=== PATIENT | female | born 1950 | race Caucasian/White ===

== ENCOUNTER 2018-09-06 06:20 | Observation (INO) ==
--- NOTE | 2018-09-06 06:35 | Emergency Department Note ---
Disposition Clinical Impression: Hypoxia Bilateral pneumonia Qualifiers: Pneumonia type: due to unspecified organism Lung location: upper lobe of lung Qualified Code(s): J18.1 - Lobar pneumonia, unspecified organism Disposition: Admitted As Inpatient Condition: Fair Time of Disposition: 09:21 SOB HPI - General Chief Complaint: ED Shortness of Breath/Dyspnea Stated Complaint: shortness of breath Time Seen by Provider: 09/06/18 06:30 Source: patient Mode of arrival: private vehicle Limitations: no limitations Nursing Notes Reviewed: Yes Vital Signs Reviewed: Yes - History of Present Illness Patient reports she has had upper respiratory congestion and a cough over the course of about 8 days. She was seen at urgent care this past Tuesday and was diagnosed as having a bronchitis and was prescribed prednisone, Tessalon Perles and azithromycin. She states she is not getting any better, has persistent cough and significant dyspnea on exertion. She also has resting dyspnea. She relates her cough is largely nonproductive and she will brings a very rare clear phlegm. She does have a little chills and occasional feels hot but is not definite fever. She denies chest pain beyond soreness with coughing or abdominal pain except from muscle soreness from coughing. She is not having palpitations. She has generalized weakness and malaise but no dizziness or diaphoresis. She denies any lower extremity swelling, immobilization or injury. She denies any known ill exposures. She has not had nausea or vomiting but she does report a couple episodes of diarrhea since starting the azithromycin. She denies any history of preceding respiratory trouble such as asthma or COPD. She is not on home oxygen and her other respiratory treatments. Due to the progressive dyspnea she is presented for evaluation. She is noted to be 86% on room air on arrival and somewhat hoarse. Pt Subjective Complaint: shortness of breath Onset (ago): day(s) (9) Context: recent illness Severity: moderate, severe Consistency/Duration: gradually worsening Improves with: rest Worsens with: exertion, coughing Associated symptoms: Reports: cough, wheezing, sputum production. Denies: chest pain, pain with inspiration, fever, orthopnea, lower extremity pain, polyuria, polydipsia, parasthesias, palpitations, hemoptysis, diaphoresis, nausea/vomiting, syncope, abdominal pain, rash Cough present: Yes Cough Description: Voluntary, Hacking, Wheezy Cough Frequency: Intermittent Sputum production: Yes Sputum Amount: Scant Sputum Color: White - Related Data Home oxygen amount: none Home Medications Medication Instructions Recorded Confirmed metFORMIN [Glucophage] 1,000 mg PO BIDWM 12/06/14 09/06/18 Allergies Allergy/AdvReac Type Severity Reaction Status Date / Time cephalexin [From Keflex] Allergy Hives Verified 06/13/18 10:55 All systems ED: reviewed and negative except as stated. Past Medical History - Past Medical History Attestation: Yes The following information was validated with the patient. Source: patient, old records reviewed, obtained from family, nursing notes reviewed Medical history: Reports: diabetes. Denies: asthma, COPD, coronary artery disease, DVT, hyperlipidemia, hypertension, pulmonary embolus, renal disease - Social History Smoking Status: Current every day smoker Smokeless Tobacco Status: No Alcohol use: Reports: none Drug use: Reports: none Physical Exam - General Limitations: no limitations General appearance: alert, in no apparent distress (Now on supplemental oxygen) - Head Head exam: atraumatic, normocephalic, normal inspection - Eye Eye exam: Present: normal appearance, PERRL, EOMI. Absent: scleral icterus, conjunctival injection - ENT ENT exam: normal exam, normal oropharynx, mucous membranes moist - Neck Neck exam: Present: normal inspection, full ROM, trachea midline - Chest Chest inspection: Present: normal inspection, symmetric chest wall rise. Absent: tenderness - Respiratory Respiratory exam: Present: respiratory distress (Prolonged respiratory phase and coughing), wheezes (Scant), prolonged expiratory phase, other (Mild decreased breath sounds in the left base.) - Cardiovascular Cardiovascular exam: Present: regular rate, normal rhythm, tachycardia, normal heart sounds. Absent: systolic murmur, JVD - Abdominal Exam Abdominal exam: Present: soft, Non-Tender, normal bowel sounds. Absent: tenderness, distention, guarding, rebound, rigidity - Extremities Exam Extremities exam: Present: normal inspection, full ROM, normal capillary refill. Absent: tenderness, pedal edema, calf tenderness - Expanded Lower Extremity Exam Neurovascular/Tendon exam: Present: normal capillary refill. Absent: motor deficit, sensory deficit, tendon deficit Gait: observed and normal - Back Exam Back exam: Present: normal inspection, full ROM. Absent: tenderness - Neurological Exam Neurological exam: Present: alert, oriented X3 - Psychiatric Psychiatric exam: Present: normal affect, normal mood. Absent: agitated, anxious - Skin Skin exam: Present: warm, dry, intact, normal color. Absent: diaphoresis, pallor Course Course Narrative: 0640: Patient was advised that she has failed adequate outpatient treatment and will likely need inpatient care. She is saturating poorly on room air or on a couple liters of oxygen. She is 90-93% on supplemental oxygen. She does have a occasional harsh cough that sounds tight. She is been written for IV fluids , EKGand laboratory testing. She has failed a course of azithromycin and has allergy to cephalexin prompting a dose of Levaquin to be ordered. She will receive an IV steroid and a DuoNeb aerosol. She understands that if her clinical course does not significantly improved I would recommend inpatient care. 0730: Chest x-ray is questionable for a hilar mass. There is no definite infiltrate to explain the patient's dyspnea and hypoxia. A CT chest with contrast has been ordered to better define the mass and rule out pulmonary embolism. 0800: The patient has just gone to CT for imaging. Care has been turned over to Dr. Reyes pending result of this for likely admission. - Reevaluation(s) Reevaluation #1: Case was turned over to me at change of shift. The PE study came back with no evidence of pulmonary embolism but groundglass appearance in both upper lobes consistent with pneumonia. So there is a patient who has been on antibiotics but presents to the emergency department with hypoxia who now has a confirm pneumonia on CT scan. This represents a failure of outpatient treatment. She needs to be admitted to the hospital. She is already received the appropriate medications here. I went and spoke with Dr. Mcdaniel, the hospitalist, and discussed the case with him. He accepted the patient for admission to the hospital. Orders were placed. At this time the patient is stable. Breathing comfortably on 2 L of oxygen with an O2 sat of 92%. Time: 09:20 Vital Signs Temperature 99.3 F 09/06/18 06:21 Pulse Rate 113 09/06/18 06:21 Respiratory Rate 18 09/06/18 06:21 Blood Pressure 152/78 09/06/18 06:21 O2 Sat by Pulse Oximetry 86 09/06/18 06:21 Temperature 99.3 F 09/06/18 06:21 Pulse Rate 99 09/06/18 07:39 Respiratory Rate 18 09/06/18 07:39 Blood Pressure 142/75 09/06/18 07:39 O2 Sat by Pulse Oximetry 94 09/06/18 07:39 Oxygen Delivery Oxygen Delivery Nasal Cannula Shortness of Breath/Dyspnea - Differential Diagnosis Likely: pneumonia (Bronchitis with bronchospasm). Unlikely: congestive heart failure, asthma with exacerbation - Medical Records Medical records reviewed: Yes I reviewed the patient's medical records. - Lab Data Lab results reviewed: Yes I reviewed the patient's lab results. Result diagrams: 09/06/18 06:53 09/06/18 06:53 Lab Results 09/06/18 09/06/18 09/06/18 Range/Units 06:53 06:53 06:53 WBC 8.6 (4.3-11.1) K/mcL RBC 4.57 (3.82-4.97) M/mcL Hgb 14.3 (11.5-15.4) g/dL Hct 41.5 (35.3-44.9) % MCV 90.8 (83.0-100.0) fL MCH 31.3 (28.0-33.3) pg MCHC 34.5 (31.6-35.5) g/dL RDW 12.5 (11.5-14.5) % Plt Count 199 (140-400) K/mcL MPV 9.4 (9.4-12.4) fL Immature Gran % 0.5 (0-4) % Seg Neutrophils % 70.5 % Lymphocytes % 20.5 % Monocytes % 8.3 % Eosinophils % 0.0 % Basophils % 0.2 % Neutrophils # 6.1 (1.6-8.9) K/mcL Lymphocytes # 1.8 (0.6-4.6) K/mcL Monocytes # 0.7 (0.0-1.3) K/mcL Eosinophils # 0.0 (0.0-0.6) K/mcL Basophils # 0.0 (0.0-0.2) K/mcL Sodium 134 L (136-145) mEq/L Potassium 3.8 (3.5-5.1) mEq/L Chloride 98 (98-107) mEq/L Carbon Dioxide 29 (23-29) mEq/L BUN 11 (8-23) mg/dL Creatinine 0.68 (0.60-1.20) mg/dL Est GFR ( Amer) > 60 (> 60) Est GFR (Non-Af Amer) > 60 (> 60) BUN/Creatinine Ratio 16 (6-26) Glucose 158 H (70-105) mg/dL Calculated Osmolality 281 (280-300) Lactic Acid 0.9 (0.5-2.2) mmol/L Calcium 8.6 (8.6-10.3) mg/dL Troponin I < 0.03 (< 0.04) ng/mL B-Natriuretic Peptide (Less than 100) pg/mL 09/06/18 Range/Units 06:53 WBC (4.3-11.1) K/mcL RBC (3.82-4.97) M/mcL Hgb (11.5-15.4) g/dL Hct (35.3-44.9) % MCV (83.0-100.0) fL MCH (28.0-33.3) pg MCHC (31.6-35.5) g/dL RDW (11.5-14.5) % Plt Count (140-400) K/mcL MPV (9.4-12.4) fL Immature Gran % (0-4) % Seg Neutrophils % % Lymphocytes % % Monocytes % % Eosinophils % % Basophils % % Neutrophils # (1.6-8.9) K/mcL Lymphocytes # (0.6-4.6) K/mcL Monocytes # (0.0-1.3) K/mcL Eosinophils # (0.0-0.6) K/mcL Basophils # (0.0-0.2) K/mcL Sodium (136-145) mEq/L Potassium (3.5-5.1) mEq/L Chloride (98-107) mEq/L Carbon Dioxide (23-29) mEq/L BUN (8-23) mg/dL Creatinine (0.60-1.20) mg/dL Est GFR ( Amer) (> 60) Est GFR (Non-Af Amer) (> 60) BUN/Creatinine Ratio (6-26) Glucose (70-105) mg/dL Calculated Osmolality (280-300) Lactic Acid (0.5-2.2) mmol/L Calcium (8.6-10.3) mg/dL Troponin I (< 0.04) ng/mL B-Natriuretic Peptide 61 (Less than 100) pg/mL - Radiology Data Radiology results reviewed: Yes I reviewed the patient's radiology results. Single view chest x-ray is performed. This does not demonstrate evidence for infiltrate, effusion, pneumothorax, foreign body or heart failure. The cardiac silhouette is normal. I do not see abnormality to the osseous structures of the chest. This is on my interpretation. Impressions Chest X-Ray 09/06/18 06:36 IMPRESSION: 1. Questionable left suprahilar nodule. Recommend CT of the chest for further evaluation. 2. Mild enlargement of the cardiac silhouette. D/ / Deejay Monk MD / Deejay Monk MD Interpreting Provider: Deejay Monk MD 0815: I have reviewed the CT of the chest prior to radiology reading. This appears to show a mild lingular infiltrate as well as a patchy small infiltrate in the right lower lung posteriorly. Patient does have one granuloma the lateral aspect of the right lung. Do not see evidence for edema, significant mass, pneumothorax or pericardial effusion. No other acute abnormalities are seen. This is on my interpretation. - EKG Data EKG attestation: Yes I reviewed and interpreted this EKG. EKG shows normal: Reports: sinus rhythm, axis, intervals, QRS complexes, ST-T waves Rate: Reports: tachycardia (103) [place]/QRS: Reports: LAHB/LAFB Interpretation: Reports: no acute changes S.B.ATerrence - Kong.AshleyATerrence Situation: Demographics, MOA Background: Presenting Complaint, Relevant PMH, Meds, & Allergies Assessment: Vital Signs, Course and respsone to treatment, Patient/Family Expe ctation, Pertinant Lab Results, Outstanding Labs Recommendation: Recommendation based on pending studies, treatments, or consults S.B.ATerrence Report Given to: Dr. Eric Worthy Repor Time: 08:00
[2018-09-06] MEDS ORDERED: methylPREDNISolone 125 MG/2 ML VIAL IVP ONE (06:36)
[2018-09-06] MEDS ORDERED: Ipratropium/Albuterol Neb 3 ML IH ONE (06:36)
[2018-09-06] MEDS ORDERED: 0.9 % Sodium Chloride 1,000 ML IVC ONE (06:36)
[2018-09-06] MEDS ORDERED: levoFLOXacin 750 MG/150 ML 750 MG/150 ML BAG IVPB ONE (06:38)
[2018-09-06 07:20] LABS: Basophils % 0.2 %; Hematocrit 41.5 % (35.3-44.9); Hemoglobin 14.3 g/dL (11.5-15.4); Immature Granulocytes % 0.5 % (0-4); Lymphocytes # 1.8 K/mcL (0.6-4.6); Lymphocytes % 20.5 %; Mean Corpuscular HGB Conc 34.5 g/dL (31.6-35.5); Mean Corpuscular Hemoglobin 31.3 pg (28.0-33.3); Mean Corpuscular Volume 90.8 fL (83.0-100.0); Mean Platelet Volume 9.4 fL (9.4-12.4); Monocytes # 0.7 K/mcL (0.0-1.3); Monocytes % 8.3 %; Neutrophils # 6.1 K/mcL (1.6-8.9); Platelet Count 199 K/mcL (140-400); Red Blood Count 4.57 M/mcL (3.82-4.97); Red Cell Distribution Width 12.5 % (11.5-14.5); Segmented Neutrophils % 70.5 %; White Blood Count 8.6 K/mcL (4.3-11.1)
[2018-09-06 07:30] LABS: BUN/Creatinine Ratio 16 (6-26); Blood Urea Nitrogen 11 mg/dL (8-23); Calcium 8.6 mg/dL (8.6-10.3); Carbon Dioxide 29 mEq/L (23-29); Chloride 98 mEq/L (98-107); Glucose 158 mg/dL (70-105); Osmolality,Calculated 281 (280-300); Potassium 3.8 mEq/L (3.5-5.1); Sodium 134 mEq/L (136-145); Troponin I < 0.03 ng/mL (< 0.04); eGFR For African Americans > 60 (> 60); eGFR For Non-African Americans > 60 (> 60)
[2018-09-06] MEDS ORDERED: Isovue-370 500 ML BOTTLE IVP ONE (07:30)
[2018-09-06] MEDS ORDERED: 0.9 % Sodium Chloride 1,000 ML IVC SCH ×4 (07:45→15:50)
[2018-09-06] MEDS ORDERED: Naloxone 0.4 MG/ML INJ IVP PRN (08:49)
[2018-09-06] MEDS ORDERED: MethylPREDNISolone 40 MG/ML VIAL IVP ONE (08:51)
--- NOTE | 2018-09-06 09:43 | Electrocardiograph Report ---
[place] [id number] Test Date: 2018-09-06 Pat Name: Lindsey Wolff Department: EDP-12 Room: [facility] Gender: F Lard Maker: : 1950 Requested By: Raymon Smith Order Number: [id number] Reading MD: Mukesh Vigil Measurements Intervals [place] Rate: 103 P: 64 WI: 161 QRS: -54 QRSD: 97 T: 74 QT: 333 QTc: 436 Interpretive Statements Sinus tachycardia RSR' in V1 or V2, right VCD or RVH Electronically Signed On 09-06-2018 9:41:30 EDT by Mukesh Vigil
[2018-09-06] MEDS: levoFLOXacin 750 MG/150 ML 750 MG/150 ML BAG IVPB SCH (10:26)
[2018-09-06] MEDS ORDERED: Ibuprofen 600 MG TABLET PO PRN (10:47)
[2018-09-06] MEDS: Ipratropium/Albuterol Neb 3 ML IH SCH ×2 (11:06→15:36)
--- NOTE | 2018-09-06 15:40 | Internal Med History&Physical ---
Date of Encounter: 09/06/18 Time of Encounter: 15:10 Assessment and Plan (1) Bilateral pneumonia Current visit: Yes Status: Acute She has been started on IV Levaquin. Lactobacillus will be added. Pro- calcitonin level will be checked. Qualifiers: Pneumonia type: due to unspecified organism Lung location: upper lobe of lung Qualified Code(s): J18.1 - Lobar pneumonia, unspecified organism (2) Hypoxia Current visit: Yes Status: Acute Room air oximetry will be checked on 6 minute walk prior to discharge. Internal Medicine - H&P: HPI Chief complaint: Dyspnea and cough Admitted From: Emergency Dept Plans for Post Hospital Care: Home History of present illness: Ms. Wolff is a 67 year old female who came to emergency room stating she had onset of fevers chills dyspnea and nonproductive cough the afternoon of September 01. The following day she went to a local urgent care and was diagnosed with bronchitis. She reports receiving a Z-Roge, Tessalon perles, and steroids. She did not feel improved after taking therapy for several days so came to emergency room today. She was evaluated with chest CTA showing multiple ill-defined groundglass nodules up to 10 mm in the left upper lobe and right lower lobe most concerning for an infectious process. There was mild left hilar lymph adenopathy. There was a 16 mm right thyroid lobe nodule seen. Room air oximetry showed 86% saturation. She was admitted to [facility] floor for ongoing care needs. She states she feels improved at the present time. Respiratory history is significant for having smoked since age 21 up to one pack per day. She has not had PFTs and does not use home oxygen. She denies testing for BHAVEHS. Past Med Surg Social Fam HX - Past Medical History Medical history: diabetes Psychiatric history: anxiety - Past Surgical History Surgical History: non-contributory Additional surgical history: Bilateral ear surgery - Social History Smoking Status: Current every day smoker Packs per day: 1 Smokeless Tobacco Status: No Alcohol use: none Drug use: none Internal Medicine - H&P: Meds metFORMIN [Glucophage] 1,000 mg PO BIDWM 12/06/14 [History] Albuterol Sulfate [Proair Hfa] 1 puff IH 09/06/18 [History] Cholecalciferol (Vitamin D3) [Vitamin D3] 10,000 unit PO TH 09/06/18 [History] Losartan Potassium 12.5 mg PO DAILY 09/06/18 [History] Allergy/AdvReac Type Severity Reaction Status Date / Time cephalexin [From Keflex] Allergy Hives Verified 06/13/18 10:55 bupropion [From Wellbutrin] AdvReac Anxiety Verified 09/06/18 10:18 Varenicline [From Chantix] AdvReac Anxiety Verified 09/06/18 10:18 All Systems PM: A 10-system review of systems was performed and is negative for pertinent findings except as documented above in the HPI. Review of systems: Gen.: She states her weight has been stable for several months Cardiovascular: She denies hypertension IA heart failure angina DVT or pulmonary embolus. She reports a negative EST done over 10 years ago. Respiratory: As per history of present illness GI: She denies disorders of her liver gallbladder or exocrine pancreas : She denies hematuria dysuria or kidney stones Neurologic: She denies large distribution strokes or seizures. Endocrine: She was diagnosed with DM 2 approximately 2010. She denies known thyroid disease. She states she takes a statin drug for CV risk reduction Hematology/oncology: She denies blood disorders cancers or anemia Psychiatric: She has anxiety and reports using hydroxyzine as needed. She denies depression or other mental health diagnoses. [place] skeletal: She denies arthritis gout or other bone joint or muscle disorders. - Constitutional Vitals: Temp Pulse Resp BP Pulse Ox 99.1 F 96 16 129/75 96 09/06/18 09:08 09/06/18 09:08 09/06/18 11:06 09/06/18 09:08 09/06/18 11:06 Exam: Gen.: She is a well-developed well-nourished female sitting on the side of bed who appears in no acute distress HEENT: Head is atraumatic and normocephalic. Eyes: EOMI. There is no scleral icterus. Mouth: Mucosa is moist. Neck: Supple and nontender. There is no thyromegaly or adenopathy noted. Heart: Regular without murmurs gallops or ectopics Lungs: No wheezes or crackles or egophony are heard Abdomen: Soft and nontender. No masses or guarding are noted. Extremities: There is no cyanosis edema or clubbing noted. Dorsalis pedis and posterior tibial pulses are 1-2 over 2 bilaterally. Neurologic: Mental status: She is talkative and a good historian. Cranial nerves: Smile is symmetric. Forehead wrinkles bilaterally. Tongue protrudes midline. EOMI. Motor: There is no pronator drift. Cerebellar: Finger to nose is intact bilaterally. Skin: Warm and dry Internal Med - H&P Results - Labs CBC & Chem 7: 09/06/18 06:53 09/06/18 06:53 Labs: Short CBC 09/06/18 Range/Units 06:53 WBC 8.6 (4.3-11.1) K/mcL Hgb 14.3 (11.5-15.4) g/dL Hct 41.5 (35.3-44.9) % Plt Count 199 (140-400) K/mcL Neutrophils # 6.1 (1.6-8.9) K/mcL BMP 09/06/18 06:53 Sodium 134 L Potassium 3.8 Chloride 98 Carbon Dioxide 29 BUN 11 Creatinine 0.68 Glucose 158 H Calcium 8.6 Cardiac Enzymes 09/06/18 Range/Units 06:53 Troponin I < 0.03 (< 0.04) ng/mL - Impressions ITS Impressions Chest X-Ray 09/06/18 06:36 IMPRESSION: 1. Questionable left suprahilar nodule. Recommend CT of the chest for further evaluation. 2. Mild enlargement of the cardiac silhouette. D/ / Deejay Monk MD / Deejay Monk MD Interpreting Provider: Deejay Monk MD Chest CTA 09/06/18 07:30 IMPRESSION: 1. No evidence of pulmonary embolism. 2. Multiple ill-defined ground-glass nodules, which measure up to 10 mm in the left upper lobe and right lower lobe. They are most concerning for an infectious process, but follow-up per guidelines below is recommended. 3. Mild left hilar lymphadenopathy, which is nonspecific and may be reactive. 4. Possible 16 mm right thyroid lobe nodule. Further evaluation with thyroid ultrasound on a nonemergent basis is recommended. RECOMMENDATIONS: Fleischner Society guidelines for follow-up and management of incidentally detected subsolid pulmonary nodules: Multiple subsolid nodules < 6 mm - CT at 3-6 months. If stable, consider CT at 2 and 4 years. > than or equal to 6 mm - CT at 3-6 months. Subsequent management based on the most suspicious nodule(s). - Low risk patients include individuals with minimal or absent history of smoking and other known risk factors. - High risk patients include individuals with a history or smoking or known risk factors. Radiology 2017 http://pubs.rsna.org/doi/full/10.1148/[email or web address] D/ / 09/06/2018 08:25:25 Jadiel Feliciano MD / carmen Interpreting Provider: Jadiel Feliciano MD
[2018-09-06] MEDS ORDERED: Albuterol 2.5 MG/3 ML NEBULIZER IH PRN (15:50)
[2018-09-06] MEDS ORDERED: methylPREDNISolone 125 MG/2 ML VIAL IVP SCH (16:00)
[2018-09-06] MEDS ORDERED: Dextrose Gel 15 GM/37.5 ML TUBE PO PRN ×2 (16:50)
[2018-09-06] MEDS ORDERED: *HR* Dextrose 50 % in Water (Vial) 50 ML VIAL IVP PRN (16:50)
[2018-09-06] MEDS ORDERED: D5% in Water 1,000 ML IVC PRN (16:50)
[2018-09-06] MEDS ORDERED: *HR* Metformin 500 MG TABLET PO SCH (17:00)
[2018-09-06] MEDS: Insulin LISPRO 300 UNITS/3 ML VIAL SQ SCH (17:50)
[2018-09-06] MEDS ORDERED: Insulin LISPRO 300 UNITS/3 ML VIAL SQ SCH (21:00)
[2018-09-06] MEDS: Lactobacillus 1 EACH CAP.SPRINK PO SCH (21:44)
[2018-09-07 05:15] LABS: Basophils % 0.1 %; Hematocrit 36.7 % (35.3-44.9); Hemoglobin 12.5 g/dL (11.5-15.4); Immature Granulocytes % 0.3 % (0-4); Lymphocytes # 3.1 K/mcL (0.6-4.6); Lymphocytes % 44.8 %; Mean Corpuscular HGB Conc 34.1 g/dL (31.6-35.5); Mean Corpuscular Hemoglobin 31.2 pg (28.0-33.3); Mean Corpuscular Volume 91.5 fL (83.0-100.0); Mean Platelet Volume 9.2 fL (9.4-12.4); Monocytes # 0.5 K/mcL (0.0-1.3); Monocytes % 7.8 %; Neutrophils # 3.2 K/mcL (1.6-8.9); Platelet Count 193 K/mcL (140-400); Red Blood Count 4.01 M/mcL (3.82-4.97); Red Cell Distribution Width 12.6 % (11.5-14.5); White Blood Count 6.9 K/mcL (4.3-11.1)
[2018-09-07 05:34] LABS: Alanine Aminotransferase 38 Units/L (7-52); Albumin 3.5 g/dL (3.5-5.7); Albumin/Globulin Ratio 1.3 (1.1-2.2); Alkaline Phosphatase 70 Units/L (34-104); Aspartate Amino Transferase 36 Units/L (13-39); BUN/Creatinine Ratio 19 (6-26); Bilirubin,Total 0.2 mg/dL (0.3-1.0); Blood Urea Nitrogen 11 mg/dL (8-23); Calcium 8.2 mg/dL (8.6-10.3); Carbon Dioxide 29 mEq/L (23-29); Chloride 103 mEq/L (98-107); Globulin 2.7 g/dL (2.4-3.5); Glucose 115 mg/dL (70-105); Osmolality,Calculated 282 (280-300); Potassium 3.9 mEq/L (3.5-5.1); Sodium 136 mEq/L (136-145); Total Protein 6.2 g/dL (6.4-8.9); eGFR For African Americans > 60 (> 60); eGFR For Non-African Americans > 60 (> 60)
[2018-09-07] MEDS: Lactobacillus 1 EACH CAP.SPRINK PO SCH (08:28)
[2018-09-07] MEDS: levoFLOXacin 750 MG/150 ML 750 MG/150 ML BAG IVPB SCH (08:28)
[2018-09-07] MEDS: Insulin LISPRO 300 UNITS/3 ML VIAL SQ SCH (08:29)
[2018-09-07 10:53] VITALS: BP 126/71
--- NOTE | 2018-09-07 11:26 | Discharge Summary ---
Orders not resulted at time of discharge: Pending orders 09/06/18 06:53 Culture,Blood [] Stat Date of Encounter: 09/07/18 Time of Encounter: 11:20 - Discharge Diagnosis (1) Bilateral pneumonia Priority: Primary Status: Acute Qualifiers: Pneumonia type: due to unspecified organism Lung location: upper lobe of lung Qualified Code(s): J18.1 - Lobar pneumonia, unspecified organism (2) Hypoxia Priority: Secondary Status: Acute Hospital course: Ms. Wolff is a 67 year old female who came to emergency room stating she had onset of fevers chills dyspnea and nonproductive cough the afternoon of September 01. The following day she went to a local urgent care and was diagnosed with bronchitis. She reports receiving a Z-Roge, Tessalon perles, and steroids. She did not feel improved after taking therapy for several days so came to emergency room today. She was evaluated with chest CTA showing multiple ill-defined groundglass nodules up to 10 mm in the left upper lobe and right lower lobe most concerning for an infectious process. There was mild left hilar lymphadenopathy. There was a 16 mm right thyroid lobe nodule seen. Room air oximetry showed 86% saturation. She was admitted to [facility] for ongoing care needs. Initial orders were written by the emergency room physician. I saw her on September 06 performed a history and physical. She was started empirically on IV Levaquin in emergency room. Procalcitonin level returned within normal range so antibiotics will not be continued at discharge. WBC remained normal without left shift on differential in follow-up labs September 07. When I saw her on September 07 she felt improved and stable for discharge home. Room air oximetry will be checked on 6 minute walk prior to discharge. I encouraged her strongly to become a nonsmoker. She will follow with her PCP Tootie Rodríguez CNP within 1 week. Her PCP can order follow-up chest CT in a few weeks to ensure resolution of pulmonary nodules. - Time Spent with Patient Total time spent providing and/or coordinating discharge services: - Discharge Medications Prescriptions: Continued metFORMIN [Glucophage] 1,000 mg PO BIDWM Losartan Potassium 12.5 mg PO DAILY Cholecalciferol (Vitamin D3) [Vitamin D3] 10,000 unit PO TH Albuterol Sulfate [Proair Hfa] 1 puff IH Home Medications: metFORMIN [Glucophage] 1,000 mg PO BIDWM 12/06/14 [History] Albuterol Sulfate [Proair Hfa] 1 puff IH 09/06/18 [History] Cholecalciferol (Vitamin D3) [Vitamin D3] 10,000 unit PO TH 09/06/18 [History] Losartan Potassium 12.5 mg PO DAILY 09/06/18 [History] Allergies/Adverse Reactions: Allergy/AdvReac Type Severity Reaction Status Date / Time cephalexin [From Keflex] Allergy Hives Verified 06/13/18 10:55 bupropion [From Wellbutrin] AdvReac Anxiety Verified 09/06/18 10:18 Varenicline [From Chantix] AdvReac Anxiety Verified 09/06/18 10:18 Date of admission: 09/06/18 08:59 Primary care physician: Tootie Rodríguez - Constitutional Vitals: Temp Pulse Resp BP Pulse Ox 98.3 F 79 16 126/71 94 09/07/18 10:53 09/07/18 10:53 09/07/18 10:53 09/07/18 10:53 09/07/18 10:53 - Patient Status Disposition: Home, Self-Care Condition: Fair - Discharge Instructions Follow Up With: Tootie Rodríguez, [employer] [Primary Care Provider] - 1 week - Diet and Activity Activity: resume usual activities as tolerated Diet: advance to your usual diet
== END 2018-09-07 13:55 | disposition home or self-care (01) ==
LOC: INPPIK 06:20 → EMEROOPIK 06:20 → INPPIK 10:05
PROVIDERS: ADMIT Internal Medicine; ATTEND Internal Medicine